=== PATIENT | female | born 1965 | race Caucasian/White ===

== ENCOUNTER 2018-03-31 01:20 | Emergency (ER) | payer OTHER ==
[~2018-03-31] VITALS: Ht 165.1 cm; Wt 3.8 kg
[2018-03-31 01:31] VITALS: Ht 165.1 cm; Wt 3.8 kg
[2018-03-31] MEDS ORDERED: ZANAFLEX4 MG PO (01:33)
[2018-03-31] MEDS ORDERED: MORPHINE SULFAT15 M4 PO (01:33)
[2018-03-31] MEDS ORDERED: DESERYL100 MG PO (01:34)
[2018-03-31] MEDS ORDERED: EFFEXOR75 MG PO (01:34)
[2018-03-31 01:43] LABS: BASOPHILS 0.2 % (0-2); EOSINOPHILS 4.4 % (0-7); HEMATOCRIT 39.9 % (36.0-48.0); HEMOGLOBIN 13.6 g/dL (12-16); LYMPHOCYTES 44.8 % (15-50); MCH 31.8 pg (26.0-34.0); MCHC 34.1 g/dL (31.0-37.0); MCV 93.2 fL (80.0-100.0); MONOCYTES 7.1 % (2-11); NEUTROPHILS 43.5 % (40-80); PLATELET COUNT 229 10x3/uL (130-400); RBC 4.28 10x6/uL (4.00-5.40); RDW 12.2 % (11.5-14.5); WBC 4.8 10x3/uL (4.8-10.8)
[2018-03-31 01:53] LABS: APTT 25.9 SECONDS (22.8-39.4); INR 1.02 (0.85-1.17)
[2018-03-31 01:58] LABS: ALBUMIN 3.7 g/dL (3.4-5.0); ALKALINE PHOSPHATASE 74 U/L (46-116); ALT (SGPT) 16 U/L (10-68); CALC OSMOLALITY 282 mosm/kg (275-300); CALCIUM 8.9 mg/dL (8.5-10.1); CARBON DIOXIDE 32.9 mmol/L (21.0-32.0); CHLORIDE - SERUM 102 mmol/L (98-107); CREATININE - SERUM 0.8 mg/dL (0.6-1.3); GLUCOSE 148 mg/dL (74-106); POTASSIUM - SERUM 3.5 mmol/L (3.5-5.1); PROTEIN - SERUM 6.6 g/dL (6.4-8.2); SODIUM 140 mmol/L (136-145); UREA NITROGEN 14 mg/dL (7-18); eGFR NON AFRICAN AMERICAN 80 mL/min (90-120)
[2018-03-31 02:17] LABS: CKMB 0.8 U/L (0.0-3.6); CREATINE KINASE 62 UL (21-215); PRO BNP 49 pg/mL (0-125); TROPONIN-I < 0.017 ng/mL (0.000-0.060)
[2018-03-31 03:27] VITALS: BP 96/52
== END 2018-03-31 03:27 | disposition home or self-care (01) ==
LOC: D.ER 01:20
PROVIDERS: Emergency Medicine
DX: R07.9 Chest pain, unspecified (principal)

== ENCOUNTER 2020-03-15 11:45 | Outpatient (CLI) | payer SELFPAY ==
[~2020-03-15 11:45] MED LIST: DESERYL100 MG PO; EFFEXOR75 MG PO; MORPHINE SULFAT15 M4 PO; ZANAFLEX4 MG PO
== END 2020-03-15 12:00 | disposition home or self-care (01) ==
LOC: D.MAMMO 11:45
PROVIDERS: ATTEND Internal Medicine
DX: Z12.31 Encounter for screening mammogram for malignant neoplasm of breast (principal)